=== PATIENT | male | born 2000 | race Caucasian/White ===

== ENCOUNTER 2024-05-08 09:07 | Emergency (ER) | payer OTHER, SELFPAY ==
[2024-05-08 09:33] VITALS: BP 139/65; PULSE 71; RESP 17; TEMP 37.1; O2SAT 99; BMI 19.3
--- NOTE | 2024-05-08 09:40 | ED.EXTPRO ---
HPI - Extremity Problem General Chief complaint: Extremity Problem,Nontraumatic Stated complaint: wrist weakness/pain, numbness on fingers Time Seen by Provider: 05/08/24 09:40 Review of Systems Review of Systems Narrative: see HPI Exam Narrative Exam Narrative: GENERAL: Well-developed patient, in mild distress. HEAD: Atraumatic. Normocephalic. EYES: Pupils equal round and reactive. Extraocular motions intact. No scleral icterus. No injection or drainage. ENT: Nose without bleeding, purulent drainage. Throat without erythema, tonsillar hypertrophy or exudate. Airway patent. NECK: Trachea midline. Non tender CARDIOVASCULAR: Regular rate and rhythm without murmurs, gallops, or rubs. RESPIRATORY: Clear to auscultation. Breath sounds equal bilaterally. No wheezes, rales, or rhonchi. GASTROINTESTINAL: Abdomen soft, non-tender, nondistended. EXTREMITIES: No edema or joint tenderness. BACK: Nontender without deformity or crepitance. No flank tenderness. NEURO: AOx3. Motor functions grossly nonfocal SKIN: No rash or erythema of visible areas
--- NOTE | 2024-05-08 12:11 | ED.EXTPRO ---
HPI - Extremity Problem <Freida Hernandez PA-C - Last Filed: 05/08/24 12:58> General Chief complaint: Extremity Problem,Nontraumatic Stated complaint: wrist weakness/pain, numbness on fingers Time Seen by Provider: 05/08/24 09:40 Source: patient Mode of arrival: Family Vehicle History of Present Illness HPI Narrative: Patient is a very pleasant 23-year-old male that presents to the emergency room department today with complaints of bilateral hand discomfort and pain. Been ongoing for an extended period of time worsening over last several days. 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 The pain usually intensified throughout the day and is worse in the later evening. Improves throughout the night as he is resting and sleeping. And then throughout the day worsens again as he works. Patient right-hand dominant. No recent injury, traumas or injuries to his hands. Patient does not have a primary care doctor. He has never had any issues or problems with his hands, he does not have any major medical problems. He has been taking ibuprofen and Advil occasional the for his discomfort and pain with some limited relief. He has no other physical complaints currently at this time. Related Data Previous Rx's Medication Instructions Recorded prednisone 10 mg tablet 10 mg PO DIRECTED #30 tabs 05/08/24 Allergies Allergy/AdvReac Type Severity Reaction Status Date / Time No Known Drug Allergies Allergy Verified 05/08/24 12:56 Review of Systems <Freida Hernandez PA-C - Last Filed: 05/08/24 12:58> Musculoskeletal Comments: Bilateral hand pain. Patient History <Freida Hernandez PA-C - Last Filed: 05/08/24 12:58> Social History Smoking Status: Current every day smoker Smoking Status: Current every day smoker tobacco type: cigarettes alcohol intake frequency: 0-2 drinks per day Substance Use Type: does not use Exam <Freida Hernandez PA-C - Last Filed: 05/08/24 12:58> Initial Vital Signs Initial Vital Signs: Vital Signs Temperature 98.7 F 05/08/24 09:33 Pulse Rate 71 05/08/24 09:33 Respiratory Rate 17 05/08/24 09:33 Blood Pressure 139/65 05/08/24 09:33 Pulse Oximetry 99 05/08/24 09:33 Oxygen Delivery Method Room Air 05/08/24 09:33 Reviewed Const General: cooperative, healthy appearing, comfortable, well developed, well groomed, No acute distress and No in distress Nutritional Appearance: average body habitus and well nourished Orientation: Orientation Eyes General: Yes appearance normal, both eyes and all related structures Pupils: PERRL EOM: EOM intact bilaterally Other: Patient wears glasses Skin Other: Warm pink and dry Neuro General: patient alert, patient awake, patient oriented x3, oriented and gait normal Cranial Nerves: CN's II-XI intact bilaterally Cognition: normal cognition Speech: speech normal Gait: normal gait Motor: muscle tone normal throughout, strength 5/5 throughout, No fasciculations and No tremor Sensory Exam: no sensory deficits noted Extrem General: normal to inspection, full ROM and capillary refill normal Other: Examination the patient has a positive Tinel sign, positive Phalen's test, he does not have thenar atrophy, his wormsers tst shows numbness over the median nerve, he is numbness over the 1st through 3rd finger with exam. Pulses are present. Cap refills preserved. Range of motion is not impacted. He does not have any pain with rubbing or pressure over the carpal tunnel area. There is no soft tissue swelling. There was no signs of infection. There is no redness. <Clinton Soriano MD - Last Filed: 05/08/24 20:39> Initial Vital Signs Initial Vital Signs: Vital Signs Temperature 98.7 F 05/08/24 09:33 Pulse Rate 71 05/08/24 09:33 Respiratory Rate 17 05/08/24 09:33 Blood Pressure 139/65 05/08/24 09:33 Pulse Oximetry 99 05/08/24 09:33 Oxygen Delivery Method Room Air 05/08/24 09:33 Scores <Ferida Hernandez PA-C - Last Filed: 05/08/24 12:58> GCS Citation: 15 Course <Freida Hernandez PA-C - Last Filed: 05/08/24 12:58> Vital Signs Vital signs: Vital Signs - 8 hr 05/08/24 13:02 Pulse Rate 74 Respiratory Rate 15 Blood Pressure 131/66 Pulse Oximetry 100 Oxygen Delivery Method Room Air Reviewed <Clinton Soriano MD - Last Filed: 05/08/24 20:39> Vital Signs Vital signs: Vital Signs - 8 hr 05/08/24 13:02 Pulse Rate 74 Respiratory Rate 15 Blood Pressure 131/66 Pulse Oximetry 100 Oxygen Delivery Method Room Air MDM - Extremity (Nontraumatic) <Freida Hernandez PA-C - Last Filed: 05/08/24 12:58> MDM Narrative Medical decision making narrative: Pleasant 23-year-old male presents to the emergency department with bilateral hand median nerve numbness, pain with continued repetitive motion and work. Worsening towards the end of his shift which is 14 hours a day. 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 Ongoing bilateral hand pain, numbness, worsening, currently does not have a primary care doctor, does not have a history of carpal tunnel, never been evaluated. Here due to worsening hand pain. All carpal tunnel syndrome tests are positive. Patient placed in bilateral wrist splints Short course of prednisone Encouraged to establish care with a primary care doctor for further testing Differential diagnosis; repetitive overuse musculoskeletal pain, carpal tunnel syndrome. Discharge Plan Departure Patient Disposition: Home Clinical Impression: Bilateral carpal tunnel syndrome Activity Restrictions/Additional Instructions: Tylenol [id number] for discomfort and pain you can take 650 mg 4 times a day, if you are going to use ibuprofen or Advil you can take 600 mg 2 times a day if you are going to use Advil, if you are going to use ibuprofen you can take 600 mg 4 times a day. Please take the prednisone in the morning. A prescription has been [facility] to the [facility] for [facility]. You will need to establish care with a primary care doctor. You will need discussed the symptoms that your currently having. Most likely these symptoms are associated with carpal tunnel syndrome. You will need a nerve conduction study test to evaluate the nerves in your upper extremities to validate that you actually have carpal tunnel syndrome. If you have carpal tunnel syndrome then they will be able to discuss with you your options for treatment going forward. Prescriptions: New prednisone 10 mg tablet 10 mg PO DIRECTED Qty: 30 0RF Rx Instructions: see taper instructions 40 mg for 3 days, 30 mg for 3 days, 20 mg for 3 days, 10 mg for 3 days. Stand Alone Forms: Patient Portal/API ED Sign-out <Clinton Soriano MD - Last Filed: 05/08/24 20:39> Cosign ED Attending Cosignature Attestation: I was immediately available in the department for consultation. This documentation has been reviewed. Supervised by Clinton Soriano MD
[2024-05-08 13:02] VITALS: BP 131/66; PULSE 74; RESP 15; O2SAT 100
== END 2024-05-08 13:03 | disposition home or self-care (01) ==
PROVIDERS: Emergency Provider Physician Assistant
DX: G56.03 Carpal tunnel syndrome, bilateral upper limbs (principal); X50.3XXA Overexertion from repetitive movements, initial encounter; Y99.0 Civilian activity done for income or pay; Y92.814 Boat as the place of occurrence of the external cause
CPT/HCPCS: 29125; 99282